=== PATIENT | male | born 1970 ===

== ENCOUNTER 2018-05-19 19:16 | Emergency (ER) | payer SELFPAY ==
[2018-05-19 19:31] VITALS: O2SAT 96
[2018-05-19] MEDS ORDERED: Promethazine/Cod 6.25mg-10mg/5ml Syr UD PO STA (19:50)
[2018-05-19] MEDS ORDERED: Albuterol 0.083% Inhal Sol (2.5 mg/3 mL) UD INH SCH (20:00)
[2018-05-19] MEDS ORDERED: Albuterol 0.083% Inhal Sol (2.5 mg/3 mL) UD ONE (20:01)
[2018-05-19] MEDS ORDERED: Promethazine/Cod 6.25mg-10mg/5ml Syr UD ONE (20:04)
--- NOTE | 2018-05-19 20:58 | C.PDOC ---
History Of Present Illness 48yo male comes in with cough, chest congestion, nasal congestion, chills, subjective fever x1 week. Today, he had some shortness of breath, prompting visit. Denies vomiting, back pain, chest pain, or any other associated symptoms. No other complaints at this time. Time Seen by Provider: 05/19/18 19:38 Chief Complaint (Nursing): Cough, Cold, Congestion History Per: Patient History/Exam Limitations: no limitations Current Symptoms Are (Timing): Still Present Past Medical History Reviewed: Historical Data, Nursing Documentation, Vital Signs Vital Signs: Last Vital Signs Temp 98.9 F 05/19/18 21:08 Pulse 80 05/19/18 21:08 Resp 16 05/19/18 21:08 BP 98/48 L 05/19/18 21:08 Pulse Ox 96 05/19/18 21:33 Family History: States: No Known Family Hx - Social History Hx Alcohol Use: Yes Hx Substance Use: No Review Of Systems Constitutional: Positive for: Fever ENT: Positive for: Nose Congestion Cardiovascular: Negative for: Chest Pain, Palpitations, Light Headedness Respiratory: Positive for: Cough, Shortness of Breath Gastrointestinal: Negative for: Vomiting Musculoskeletal: Negative for: Neck Pain Skin: Negative for: Rash Physical Exam - Physical Exam Appears: Non-toxic, No Acute Distress Skin: Warm, Dry, No Rash Head: Atraumatic, Normacephalic Eye(s): bilateral: Normal Inspection, PERRL, EOMI Ear(s): Bilateral: Normal Nose: Normal Oral Mucosa: Moist Lips: Normal Appearing Throat: No Erythema, No Exudate, No Drooling, No Mass Neck: Normal ROM, Supple Chest: Symmetrical Cardiovascular: Rhythm Regular, No Murmur Respiratory: Decreased Breath Sounds (greater on right), No Accessory Muscle Use , No Rales, No Rhonchi, No Wheezing Extremity: Normal ROM, No Deformity Neurological/Psych: Oriented x3, Normal Speech ED Course And Treatment O2 Sat by Pulse Oximetry: 96 (RA) Pulse Ox Interpretation: Normal - Radiology CXR: Viewed By Me, Read By Radiologist CXR Interpretation: Yes: Infiltrates (right lower lobe) Medical Decision Making Medical Decision Making: Labs * Chest X-Ray * Motrin, Prednisone, Phenergan/Codeine * Reassess and Disposition Disposition Counseled Patient/Family Regarding: Diagnosis, Need For Followup, Rx Given - Disposition Disposition: HOME/ ROUTINE Disposition Time: 20:54 Condition: STABLE Additional Instructions: Please follow up with PMD or in clinic Take medications as directed Return to ER if worse Prescriptions: Azithromycin [Zithromax] 250 mg PO DAILY #6 tab Ibuprofen [Motrin] 600 mg PO Q6H #20 tab predniSONE [Prednisone] 40 mg PO DAILY #8 tab Promethazine/Codeine [Codeine/Promethazine 10 MG/5 Ml-6.25 MG/5 Ml] 5 ml PO TID #100 ml Instructions: Pneumonia, Adult (DC) Forms: [employer] (Turkmen) Print Language: LITHUANIAN - Clinical Impression Clinical Impression: Pneumonia - Scribe Statement The provider has reviewed the documentation as recorded by the Scribe (Ady Braxton) All medical record entries made by the Scribe were at my direction and personally dictated by me. I have reviewed the chart and agree that the record accurately reflects my personal performance of the history, physical exam, medical decision making, and the department course for this patient. I have also personally directed, reviewed, and agree with the discharge instructions and disposition.
[2018-05-19 21:09] VITALS: BP 98/48; PULSE 80; RESP 16; TEMP 98.9
--- NOTE | 2018-05-20 09:21 | RAD ---
HISTORY: COMPARISON: No prior. TECHNIQUE: Chest PA and lateral FINDINGS: LINES AND TUBES: None. LUNG AND PLEURA: The lungs are well inflated. There is airspace disease with air bronchogram in the right lower lobe. The right costophrenic angle is blunted No left pleural effusion or pneumothorax. HEART AND MEDIASTINUM: The heart is not enlarged. The hilar and mediastinal contours are within normal limits. SKELETAL STRUCTURES: The bony structures are within normal limits for the patient's age. VISUALIZED UPPER ABDOMEN: Normal. OTHER FINDINGS: None. IMPRESSION: Right lower lobe pneumonia. Follow-up after medical management is recommended to ensure complete resolution.
== END 2018-05-19 21:09 | disposition home or self-care (01) ==
LOC: C.ER 19:16
DX: J18.9 Pneumonia, unspecified organism (principal)